=== PATIENT | male | born 1955 | race Caucasian/White ===

== ENCOUNTER 2019-01-27 11:56 | Emergency (ER) | payer BC, MEDICARE ==
--- NOTE | 2019-01-27 13:30 | RAD ---
F3 views of the lumbar spine: 01/27/2019 COMPARISON: 07/10/2013 HISTORY: Fall, pain, trauma, low back pain Findings: Mild retrolisthesis at L4-5 measuring 7 mm. Disc space narrowing with degenerative endplate change and prominent anterior osteophyte formation noted at T12-L1 and L1-2. Mild anterior osteophyte formation at L2-3, L3-4, and L4-5. Facet hypertrophy at L3-4 and L4-5. Postoperative clips overlie the right aspect of sacrum. No acute fracture or evidence of dislocation. IMPRESSION: Multilevel lumbar spine degenerative change. No acute fracture or evidence of dislocation .
--- NOTE | 2019-01-27 13:30 | RAD ---
FRadiograph chest and left RIBS 4 views: 01/27/2019 HISTORY: 63-year-old male with traumatic left rib pain due to fall FINDINGS: There are old healed fracture deformities of the lateral aspects of the left fifth, sixth, and sevent h, ribs. Diffuse osteopenia. No definite acute rib fracture identified. Lungs are grossly clear. Card iac mediastinal silhouette is normal. No pneumothorax. No effacement of lateral costophrenic angles. IMPRESSION: 1. Several old, healed left rib fracture deformities. 2. No acute fracture identified. 3. No acute cardiopulmonary findings
[2019-01-27] MEDS ORDERED: traMADol HCl 50 MG TAB ONE (14:00)
== END 2019-01-27 15:25 | disposition home or self-care (01) ==
LOC: ERS 11:56
DX: S20.212A Contusion of left front wall of thorax, initial encounter (principal); M54.5 Low back pain; I25.10 Atherosclerotic heart disease of native coronary artery without angina pectoris; N40.0 Benign prostatic hyperplasia without lower urinary tract symptoms; E78.5 Hyperlipidemia, unspecified; I10 Essential (primary) hypertension; J44.9 Chronic obstructive pulmonary disease, unspecified; Z79.51 Long term (current) use of inhaled steroids; Z79.899 Other long term (current) drug therapy; Z79.01 Long term (current) use of anticoagulants; W19.XXXA Unspecified fall, initial encounter
CPT/HCPCS: 72100

== ENCOUNTER 2020-06-20 14:38 | Emergency (ER) | payer OTHER ==
[2020-06-20] MEDS ORDERED: Acetaminophen 500 MG TAB ONE (15:34)
[2020-06-20 15:45] LABS: #Monocytes 0.7 thou/uL (0.11-0.59); #Neutrophils 5.7 thou/uL (1.40-6.50); %Basophils 0.3 % (0.0-1.0); %Eosinophils 0.5 % (0.0-10.0); %Lymphocytes 12.8 % (21.0-51.0); %Monocytes 9.5 % (0.0-10.0); %Neutrophils 76.9 % (42.0-75.0); Hemoglobin 14.7 g/dL (14.0-18.0); Mean Corpuscular HGB CONC 33.8 g/dL (32.0-36.0); Mean Corpuscular Hemoglobin 33.5 pg (27.0-31.0); Mean Platelet Volume 8.4 fL (7.4-10.4); Platelet Count 128 thou/uL (130-400); RBC Distribution Width 11.2 % (11.5-14.5); Red Blood Cell (RBC) Count 4.38 mill/uL (4.70-6.10); White Blood Cell (WBC) Count 7.4 thou/uL (4.8-10.8)
[2020-06-20 16:07] LABS: ALT (SGPT) 10 U/L (8-55); AST (SGOT) 11 U/L (5-34); Albumin 4.3 g/dL (3.4-4.8); Alkaline Phosphatase 87 U/L (40-110); Anion Gap 13 mmol/L (10-20); BUN (Urea Nitrogen) 20 mg/dL (8.4-25.7); Bilirubin, Total 0.4 mg/dL (0.2-1.2); Calc. Creatinine Clearance 0 mL/min (70-130); Calcium 9.3 mg/dL (7.8-10.44); Carbon Dioxide 20 mmol/L (23-31); Chloride 111 mmol/L (98-107); Estimated GFR-MDRD 64; Globulin 2.8 g/dL (2.4-3.5); Glucose 111 mg/dL (80-115); Protein, Total 7.1 g/dL (5.8-8.1); Sodium 140 mmol/L (136-145)
--- NOTE | 2020-06-20 16:14 | CT ---
Exam: Thoracic CT without contrast HISTORY: Back pain. Right leg numbness. History of cancer. Comparison: None FINDINGS: There does appear to be a left thyroid nodule, incompletely evaluated No mediastinal mass or lymphadenopathy, or hematoma. Visualized solid organs do not demonstrate any acute abnormality. Surgically absent gallbladder No paraspinal mass or adenopathy or hematoma. Visualized paraspinal muscles do not demonstrate posttr aumatic change Visualized aorta has a normal caliber. No periaortic fat stranding Diffuse bone demineralization. 12 thoracic type vertebra. Thoracic spine vertebral body height is esther ntained. There is no fracture. Extensive osteophyte from T7-T8 through T12-L1. Osteophytes are predominantly along the anterior aspect of the disc space. Correlate for DISH.. Limited evaluation the contents of the central spinal canal and neural foramina due to technique. Throughout the thoracic spine, no high-grade central canal stenosis. No high-grade neural foraminal n arrowing. IMPRESSION: 1. Extensive anterior osteophyte formation. Correlate for DISH. 2. No fracture. No evidence of high-grade central canal stenosis or high-grade neural foraminal narro wing Transcribed Date/Time: 06/20/2020 4:55 PM
--- NOTE | 2020-06-20 16:38 | CT ---
CT LUMBAR SPINE: 06/20/20 INDICATIONS: Back pain. Right leg numbness. FINDINGS: Lumbar vertebrae maintain height. There are moderately severe degenerative changes with large anterio r bridging osteophytes in the lower thoracic and upper lumbar spine with prominent osteophytes also s een in the lumbar spine. Degenerative disc changes at all levels most prominent at L4-5 where there i s vacuum phenomenon and loss of disc space. L1-2: Mild disc bulge. Facet hypertrophy. Mild central canal stenosis. L2-3: Broad based disc bulge. Mild to moderate facet hypertrophy. Mild to moderate central canal sten osis. L3-4: Mild diffuse disc bulge. Moderate facet hypertrophy. Mild to moderate central canal stenosis. L4-5: There is broad based disc bulge. There is evidence of disc protrusion paracentrally to the righ t compressing the anterior thecal sac on the right and extending into the right foramina. Moderate ce ntral canal stenosis. Right foraminal stenosis. L5-S1: Broad based disc bulge. Facet hypertrophy. No significant central canal or foraminal stenosis . IMPRESSION: 1. Disc protrusion to the right at L4-5 as described above. 2. Disc bulge and central canal stenosis at other disc levels as described above. POS: YVETTE
== END 2020-06-20 17:28 | disposition home or self-care (01) ==
LOC: ERS 14:38
DX: M51.16 Intervertebral disc disorders with radiculopathy, lumbar region (principal); I25.10 Atherosclerotic heart disease of native coronary artery without angina pectoris; N40.0 Benign prostatic hyperplasia without lower urinary tract symptoms; E78.5 Hyperlipidemia, unspecified; E78.00 Pure hypercholesterolemia, unspecified; I10 Essential (primary) hypertension; I48.91 Unspecified atrial fibrillation; J44.9 Chronic obstructive pulmonary disease, unspecified; Z79.899 Other long term (current) drug therapy; Z79.01 Long term (current) use of anticoagulants; Z79.51 Long term (current) use of inhaled steroids
CPT/HCPCS: 36415; 72128; 72131; 80053; 85025

== ENCOUNTER 2020-11-17 17:32 | Emergency (ER) | payer OTHER ==
[2020-11-17 18:44] LABS: #Lymphocytes 0.5 thou/uL (1.20-3.40); #Monocytes 0.3 thou/uL (0.11-0.59); #Neutrophils 2.8 thou/uL (1.40-6.50); %Basophils 0.1 % (0.0-1.0); %Eosinophils 0.5 % (0.0-10.0); %Lymphocytes 14.6 % (21.0-51.0); %Neutrophils 77.8 % (42.0-75.0); Mean Corpuscular HGB CONC 33.3 g/dL (32.0-36.0); Mean Corpuscular Hemoglobin 31.6 pg (27.0-31.0); Mean Corpuscular Volume 94.9 fL (78.0-98.0); Mean Platelet Volume 8.8 fL (7.4-10.4); Platelet Count 101 thou/uL (130-400); RBC Distribution Width 12.3 % (11.5-14.5); Red Blood Cell (RBC) Count 4.44 mill/uL (4.70-6.10); White Blood Cell (WBC) Count 3.7 thou/uL (4.8-10.8)
[2020-11-17 19:01] LABS: ALT (SGPT) 27 U/L (8-55); AST (SGOT) 33 U/L (5-34); Albumin 3.8 g/dL (3.4-4.8); Alkaline Phosphatase 97 U/L (40-110); Anion Gap 13 mmol/L (10-20); BUN (Urea Nitrogen) 21 mg/dL (8.4-25.7); Bilirubin, Total 0.3 mg/dL (0.2-1.2); Calc. Creatinine Clearance 0 mL/min (70-130); Calcium 8.4 mg/dL (7.8-10.44); Carbon Dioxide 20 mmol/L (23-31); Chloride 112 mmol/L (98-107); Globulin 3.1 g/dL (2.4-3.5); Glucose 106 mg/dL (80-115); Potassium 3.9 mmol/L (3.5-5.1); Protein, Total 6.9 g/dL (5.8-8.1); Sodium 141 mmol/L (136-145)
[2020-11-17 19:05] LABS: Platelet Morphology Comment Appears Decreased; RBC Morphology Normal
--- NOTE | 2020-11-17 20:28 | RAD ---
AP CHEST: Indications: Covid positive. Comparison: 2015 FINDINGS: There is no evidence of focal consolidation or confluent infiltrate. There is interstitial prominence and possible hazy infiltrate in the left lower lung. Vascular markings normal. Heart size upper norm al and stable. IMPRESSION: Hazy ground glass type infiltrate in the left lower lung may be present and is worrisome for Covid pn eumonia given the history of Covid positive. POS: AGW
[2020-11-17] MEDS ORDERED: Acetaminophen 500 MG TAB ONE (20:59)
[2020-11-17] MEDS ORDERED: Dexamethasone 10 MG/ML VIAL ONE (20:59)
== END 2020-11-17 22:53 | disposition home or self-care (01) ==
LOC: ERS 17:32
DX: U07.1 COVID-19 (principal); J12.82 Pneumonia due to coronavirus disease 2019; I10 Essential (primary) hypertension; I25.10 Atherosclerotic heart disease of native coronary artery without angina pectoris; N40.0 Benign prostatic hyperplasia without lower urinary tract symptoms; E78.5 Hyperlipidemia, unspecified; E78.00 Pure hypercholesterolemia, unspecified; J44.9 Chronic obstructive pulmonary disease, unspecified; I48.91 Unspecified atrial fibrillation; Z79.01 Long term (current) use of anticoagulants; Z79.899 Other long term (current) drug therapy
CPT/HCPCS: 36415; 71045; 80053; 83605; 84484; 85025; 93005; 96374; J1100

== ENCOUNTER 2020-11-24 09:01 | Emergency (ER) | payer OTHER ==
[2020-11-24] MEDS ORDERED: Dexamethasone 10 MG/ML VIAL ONE (09:32)
[2020-11-24 09:43] LABS: #Eosinphils 0.1 thou/uL (0.0-0.7); #Lymphocytes 0.8 thou/uL (1.20-3.40); #Monocytes 0.8 thou/uL (0.11-0.59); #Neutrophils 6.2 thou/uL (1.40-6.50); %Basophils 0.2 % (0.0-1.0); %Eosinophils 0.9 % (0.0-10.0); %Lymphocytes 9.6 % (21.0-51.0); %Monocytes 9.6 % (0.0-10.0); %Neutrophils 79.8 % (42.0-75.0); Hemoglobin 15.4 g/dL (14.0-18.0); Mean Corpuscular HGB CONC 33.2 g/dL (32.0-36.0); Mean Corpuscular Hemoglobin 31.6 pg (27.0-31.0); Mean Corpuscular Volume 95.1 fL (78.0-98.0); Platelet Count 150 thou/uL (130-400); RBC Distribution Width 12.4 % (11.5-14.5); Red Blood Cell (RBC) Count 4.87 mill/uL (4.70-6.10); White Blood Cell (WBC) Count 7.8 thou/uL (4.8-10.8)
[2020-11-24 10:03] LABS: ALT (SGPT) 36 U/L (8-55); AST (SGOT) 19 U/L (5-34); Albumin 3.5 g/dL (3.4-4.8); Alkaline Phosphatase 94 U/L (40-110); Anion Gap 12 mmol/L (10-20); BUN (Urea Nitrogen) 23 mg/dL (8.4-25.7); Bilirubin, Total 0.6 mg/dL (0.2-1.2); Calc. Creatinine Clearance 0 mL/min (70-130); Calcium 8.5 mg/dL (7.8-10.44); Carbon Dioxide 24 mmol/L (23-31); Chloride 114 mmol/L (98-107); Globulin 3.1 g/dL (2.4-3.5); Glucose 99 mg/dL (80-115); Potassium 3.4 mmol/L (3.5-5.1); Protein, Total 6.6 g/dL (5.8-8.1); Sodium 147 mmol/L (136-145)
--- NOTE | 2020-11-24 10:05 | RAD ---
PORTABLE CHEST 1 VIEW: DATE: 11/24/2020. TIME: 9:37 AM. HISTORY: Cough. The patient tested COVID positive on November 11, 2020. COMPARISON: 11/17/2020. FINDINGS: The heart size is stable. The lungs are expanded without lobar consolidation, pneumothoraces, or ple ural effusions. Mild chronic changes are again seen. IMPRESSION: No acute process. Plain radiographs can be falsely negative in the setting of COVID-19 pneumonias. POS: OFF
[2020-11-24] MEDS ORDERED: Iopamidol-370 76% 500 ML 1 ML ONE (10:25)
--- NOTE | 2020-11-24 11:18 | CT ---
CT ANGIOGRAM CHEST WITH CONTRAST: HISTORY: COVID pneumonia and shortness of breath. Prior lung cancer. COMPARISON: Abdomen chest radiograph of same day. FINDINGS: Extensive scar throughout the lungs with peripheral bullous formation in the left lower lobe. There are 2 separate nodules within the right upper lobe measuring 6 and 5 mm axial image 43 coronary image s to 77 and 70. There is a suture line in the right hilum from prior lobectomy change. Small scar in the peripheral aspect of the right lung base with a nodule measuring 4 mm axial image 75 and a triangular-shaped nod ule measuring 5 mm extralumen and also axial image 75. No pneumothorax. No evidence for COVID pneumonia. Small pericardial effusion. Upper abdomen is wit hout acites or inflammatory process. There are a few likely reactive anterior paratracheal lymph nodes the largest having short axis of 8 mm axial image 34. Sternum and manubrium are intact. Thoracic spine is intact. No acute displaced rib fracture. No pulmonary arterial filling defect. IMPRESSION: 1. No pulmonary embolism. 2. Prior partial lobectomy change of the right lung with scattered scar formation. 3. Scattered pulmonary nodules measuring up to 6-7 mm. Recommend correlation with prior imaging of the chest is available for review. If these are new or enlarging, close followup CT of the chest wou ld be recommended. If there is no prior imaging available for review, a followup CT chest in 3 month s to establish growth or change would be recommended. 4. Scattered emphysema and bolla formation. POS: OFF
--- NOTE | 2020-11-29 20:37 | EKG ---
Test Reason : Blood Pressure : / mmHG Vent. Rate : 123 BPM Atrial Rate : 220 BPM P-R Int : 000 ms QRS Dur : 076 ms QT Int : 314 ms P-R-T Axes : 000 032 024 degrees QTc Int : 449 ms Atrial fibrillation with rapid ventricular response with premature ventricular or aberrantly conducte d complexes ST abnormality, possible digitalis effect Abnormal ECG Confirmed by JEFE HERNANDEZ, DIANA ([id number]), health editor ERIC JUDGE ([id number] on 11/29/2020 8:37:13 PM Referred By: Confirmed By:DIANA MAYBERRY MD
== END 2020-11-24 16:27 ==
LOC: ERS 09:01
DX: U07.1 COVID-19 (principal); J12.82 Pneumonia due to coronavirus disease 2019; R09.02 Hypoxemia; I48.91 Unspecified atrial fibrillation; I25.10 Atherosclerotic heart disease of native coronary artery without angina pectoris; N40.0 Benign prostatic hyperplasia without lower urinary tract symptoms; E78.5 Hyperlipidemia, unspecified; E78.00 Pure hypercholesterolemia, unspecified; I10 Essential (primary) hypertension; J44.9 Chronic obstructive pulmonary disease, unspecified; Z79.01 Long term (current) use of anticoagulants; Z79.899 Other long term (current) drug therapy
CPT/HCPCS: 71045; 71275; 80053; 83880; 84484; 85025; 85379; 93005; 96374; J1100; Q9967

== ENCOUNTER 2020-12-03 11:06 | Emergency (ER) | payer OTHER ==
[2020-12-03 13:03] LABS: #Lymphocytes 0.7 thou/uL (1.20-3.40); #Monocytes 1.4 thou/uL (0.11-0.59); %Basophils 0.1 % (0.0-1.0); %Eosinophils 0.2 % (0.0-10.0); %Lymphocytes 5.2 % (21.0-51.0); %Monocytes 9.9 % (0.0-10.0); %Neutrophils 84.6 % (42.0-75.0); Mean Corpuscular HGB CONC 33.3 g/dL (32.0-36.0); Mean Corpuscular Hemoglobin 31.3 pg (27.0-31.0); Mean Platelet Volume 9.4 fL (7.4-10.4); Platelet Count 134 thou/uL (130-400); RBC Distribution Width 13.2 % (11.5-14.5); Red Blood Cell (RBC) Count 4.48 mill/uL (4.70-6.10); White Blood Cell (WBC) Count 14.2 thou/uL (4.8-10.8)
--- NOTE | 2020-12-03 13:12 | RAD ---
Portable chest: HISTORY: Hiccups COMPARISON: 11/24/2020 FINDINGS:Borderline cardiomegaly is stable. Vascular markings within normal range. Interstitial promi nence in the lung bases appear stable. No acute interval change. IMPRESSION: No acute finding
[2020-12-03 13:23] LABS: ALT (SGPT) 120 U/L (8-55); AST (SGOT) 33 U/L (5-34); Albumin 3.7 g/dL (3.4-4.8); Alkaline Phosphatase 69 U/L (40-110); Anion Gap 14 mmol/L (10-20); BUN (Urea Nitrogen) 30 mg/dL (8.4-25.7); Bilirubin, Total 0.6 mg/dL (0.2-1.2); Calc. Creatinine Clearance 0 mL/min (70-130); Calcium 8.6 mg/dL (7.8-10.44); Carbon Dioxide 25 mmol/L (23-31); Chloride 100 mmol/L (98-107); Globulin 2.5 g/dL (2.4-3.5); Glucose 96 mg/dL (80-115); Lipase 71 U/L (8-78); Potassium 4.2 mmol/L (3.5-5.1); Protein, Total 6.2 g/dL (5.8-8.1); Sodium 135 mmol/L (136-145)
[2020-12-03] MEDS ORDERED: Metoclopramide HCl 10 MG/2 ML VIAL ONE (13:43)
[2020-12-03 14:11] LABS: Bilirubin Negative (Negative); Blood, Urine Negative (Negative); Clarity Clear (Clear); Glucose, Urine (Dipstick) Normal (Negative); Ketone, Urine Negative (Negative); Leukocyte Negative Leu/uL (Negative); Nitrite Negative (Negative); Protein, Urine (Dipstick) Negative (Neg-Trace); Specific Gravity, Urine 1.011 (1.002-1.036); Urobilinogen Normal mg/dL (Less than 2)
== END 2020-12-03 15:02 | disposition home or self-care (01) ==
LOC: ERS 11:06
DX: R06.6 Hiccough (principal); R60.0 Localized edema; I25.10 Atherosclerotic heart disease of native coronary artery without angina pectoris; N40.0 Benign prostatic hyperplasia without lower urinary tract symptoms; E78.5 Hyperlipidemia, unspecified; E78.00 Pure hypercholesterolemia, unspecified; I10 Essential (primary) hypertension; I48.91 Unspecified atrial fibrillation; J44.9 Chronic obstructive pulmonary disease, unspecified; Z86.16 Personal history of COVID-19; Z79.01 Long term (current) use of anticoagulants; Z79.899 Other long term (current) drug therapy; Z79.51 Long term (current) use of inhaled steroids
CPT/HCPCS: 36415; 71045; 80053; 81003; 83690; 84484; 85025; 93005; 96365; J2765